=== PATIENT | male | born 1995 | race Two or more races ===

== ENCOUNTER 2019-04-05 09:27 | Emergency (ER) | payer OTHER ==
[~2019-04-05] VITALS: Ht 165.1 cm; Wt 72.6 kg
[2019-04-05 09:45] VITALS: BP 112/71
[2019-04-05] MEDS ORDERED: Ketorolac 60mg Inj IM ONE (09:45)
--- NOTE | 2019-04-05 09:49 | NUR ---
ED Nurse Note: pt walked in c/o low back pain after lifting heavy objects at work. tatianna coello done awaiting nsg orders.
--- NOTE | 2019-04-05 09:51 | Emergency Room Report ---
History of Present Illness General Chief Complaint: Lower Back Pain or Injury Source: Patient Present Illness HPI Patient is a 23-year-old male who presented after increased left-sided low back pain. Patient reports having a injury at work. He states he was lifting a heavy bag and subsequently began having increased pain to the left side of his back. Pain is worse with movements. He states that he had worsening pain with right lateral flexion. Pain was predominantly on the left side. He reports having some radiation to the left thigh. He denies any radiation below the leg or any weakness. He denies any bowel or bladder dysfunction. He had not been having any fever or weight loss. He denies any recent trauma. Allergies: Coded Allergies: No Known Allergies (Unverified , 04/05/19) Patient History Past Medical History: see triage record Reviewed Nursing Documentation: PMH: Agreed; PSxH: Agreed Nursing Documentation-PMH Past Medical History: No Stated History Review of Systems All Other Systems: negative except mentioned in HPI Physical Exam Vital Signs Date Time Temp Pulse Resp B/P (MAP) Pulse Ox O2 Delivery O2 Flow Rate FiO2 04/05/19 09:37 97.9 72 16 112/71 (85) 97 Room Air General Appearance: well appearing, no apparent distress, alert, GCS 15 Head: normocephalic, atraumatic ENT: hearing grossly normal, normal voice Neck: full range of motion, supple Respiratory: no respiratory distress, speaking full sentences Gastrointestinal: normal inspection, non tender, soft Musculoskeletal: normal inspection, decreased range of mation, other Neurologic: normal inspection, alert, oriented x3, delivery tech III-XII nml as tested, normal gait, other - positive slr left at 45 degrees Psychiatric: mood/affect normal Skin: normal inspection, no rash Medical Decision Making Diagnostic Impression: Primary Impression: Low back pain ER Course Patient presented for low back pain. Differential diagnosis include was limited to contusion, fracture, sprain, disc herniation among others. Patient was noted to have what appears to be muscular skeletal but low back pain. This appears to be related to recent lifting injury. Patient noted to have some muscular tenderness to the left side of his back. He denies any dysuria or urinary symptoms. Patient was noted to have worsening with right lateral flexion consistent with a disc herniation. Patient appears to be stable for outpatient imaging. He does not have any evidence of recent trauma. Patient will be placed on light duty. Is to follow-up with Worker's Comp. physician for further imaging as indicated.Patient is advised to return if he began having any weakness, bowel or bladder dysfunction or other concerns. Last Vital Signs Date Time Temp Pulse Resp B/P (MAP) Pulse Ox O2 Delivery O2 Flow Rate FiO2 04/05/19 09:37 97.9 72 16 112/71 (85) 97 Room Air Status: improved Disposition: HOME, SELF-CARE Condition: Stable Scripts Methocarbamol* (ROBAXIN-750*) 750 Mg Tablet 750 MG PO TID, #21 TAB 0 Refills Prov: Nilson Laguna MD 04/05/19 Ibuprofen* (MOTRIN*) 600 Mg Tablet 600 MG ORAL Q8H PRN for For Pain, #30 TAB 0 Refills Prov: Nilson Laguna MD 04/05/19 Nilson Laguna MD Apr 05, 2019 09:51
[2019-04-05] MEDS ORDERED: IBUPROFEN600 MG ORAL (09:53)
[2019-04-05] MEDS ORDERED: ROBAXIN-750750 MG PO (09:53)
[2019-04-05 10:06] VITALS: BP 112/71
--- NOTE | 2019-04-05 10:07 | NUR ---
ED Nurse Note: Pt cleared by health care Provider for discharge. DC instructions/prescription was given and explained to pt and verbalized understanding of teachings. All medical deviecs such as ID band removed. Pt is AAO x4, ambulatory and left with all personal belongings. med well tolerated pt also given workers comp papers.
== END 2019-04-05 10:08 | disposition home or self-care (01) ==
LOC: EMR 09:49
DX: M54.5 Low back pain (principal); S39.92XA Unspecified injury of lower back, initial encounter; X50.0XXA Overexertion from strenuous movement or load, initial encounter; Y93.9 Activity, unspecified; Y92.9 Unspecified place or not applicable
CPT/HCPCS: 96372; 99283